=== PATIENT | female | born 1995 | race Asian ===

== ENCOUNTER 2017-06-22 20:55 | Inpatient (IN) | payer OTHER ==
[~2017-06-22] VITALS: Ht 160 cm; Wt 73.4 kg
[2017-06-22 21:24] LABS: BASOPHILS % (AUTO) 0.6 % (0.0-2.0); EOSINOPHILS % (AUTO) 1.5 % (1.0-6.0); HEMATOCRIT 34.9 % (36-46); LYMPHOCYTES # (AUTO) 1.7 K/uL (1.0-4.8); LYMPHOCYTES % (AUTO) 16.7 % (22.0-44.0); MEAN CORPUSCULAR HEMOGLOBIN 19.1 pg (26.0-34.0); MEAN CORPUSCULAR HGB CONC 31.5 G/dL (31.0-37.0); MEAN CORPUSCULAR VOLUME 61 fL (80-100); MONOCYTES % (AUTO) 9.3 % (2.0-9.0); NEUTROPHILS # (AUTO) 7.4 K/uL (1.8-7.7); NEUTROPHILS % (AUTO) 71.9 % (40.0-70.0); PLATELET COUNT (AUTO) 369 K/uL (150-450); RED BLOOD CELL COUNT(AUTO) 5.76 MIL/uL (4.00-5.20)
[2017-06-22 21:27] LABS: ANION GAP 9 mmol/L (8-16); CALCIUM, TOTAL 8.3 mg/dL (8.8-10.5); CARBON DIOXIDE 25 mmol/L (22-29); CHLORIDE 106 mmol/L (98-107); CREATININE 0.67 mg/dL (0.60-1.30); GLOMERULAR FILTR. RATE CALC > 60 mL/min (>60); GLUCOSE,RANDOM 115 mg/dL (70-110); POTASSIUM 4.4 mmol/L (3.5-5.1); SODIUM SERUM 140 mmol/L (136-145); UREA NITROGEN, BLOOD 13 mg/dL (7-18)
[2017-06-22 21:33] LABS: ALANINE AMINOTRANSFERASE 23 U/L (12-78); ALBUMIN 3.6 g/dL (3.4-5.0); ALKALINE PHOSPHATASE 88 U/L (46-116); ASPARTATE AMINOTRANSFERASE 18 U/L (15-37); BILIRUBIN,TOTAL 0.2 mg/dL (0.1-1.0); TOTAL PROTEIN, SERUM 8.1 g/dL (6.4-8.2)
[2017-06-22 21:34] LABS: ACETAMINOPHEN < 2 mcg/mL (10-30)
[2017-06-22 21:44] LABS: SALICYLATE < 2.8 mg/dL (2.8-20.0)
[2017-06-22 22:02] LABS: PLATELET MORPHOLOGY COMMENT NORMAL
[2017-06-23 00:01] LABS: AMPHET/METH SCREEN,URINE NEGATIVE (NEGATIVE); BARBITURATE SCREEN, URINE NEGATIVE (NEGATIVE); BENZODIAZEPINES SCREEN,URINE NEGATIVE (NEGATIVE); CANNABINOID SCREEN,URINE POSITIVE (NEGATIVE); COCAINE SCREEN,URINE NEGATIVE (NEGATIVE); METHADONE SCREEN, URINE NEGATIVE (NEGATIVE); OPIATE SCREEN,URINE NEGATIVE (NEGATIVE); PHENCYCLIDINE SCREEN,URINE NEGATIVE (NEGATIVE)
[2017-06-23] MEDS ORDERED: HALOPERIDOL 5 MG TABLET PO PRN (03:15)
[2017-06-23] MEDS ORDERED: ZOLPIDEM TARTRATE 10 MG TABLET PO PRN (03:15)
[2017-06-23] MEDS ORDERED: LORazepam 2 MG TABLET PO PRN (03:15)
[2017-06-23 06:13] LABS: CHOL/HDL RATIO 2.6 (3.9-5.7); FREE T4 (FREE THYROXINE) 0.79 ng/dL (0.76-1.46); THYROID STIMULATING HORMONE 1.89 uIU/mL (0.36-3.74)
[2017-06-23 10:25] VITALS: BP 123/72
[2017-06-23] MEDS ORDERED: CloNIDine HCL 0.1 MG TABLET PO PRN (13:45)
[2017-06-23] MEDS ORDERED: ACETAMINOPHEN 325 MG TABLET PO PRN (13:45)
[2017-06-23] MEDS ORDERED: ALBUTEROL SULFATE HFA 90 MCG/PUFF 8 GM INHALER IH PRN (13:45)
[2017-06-23] MEDS ORDERED: IBUPROFEN 600 MG TABLET PO PRN (13:45)
[2017-06-23] MEDS ORDERED: BENZOCAINE/MENTHOL LOZENGE MM PRN (13:45)
[2017-06-23] MEDS ORDERED: ONDANSETRON HCL 4 MG TABLET PO PRN (13:45)
[2017-06-23] MEDS ORDERED: BACITRACIN 28.4 GM OINTMENT TP PRN (13:45)
[2017-06-23] MEDS ORDERED: LOPERAMIDE HCL 2 MG CAPSULE PO PRN (13:45)
[2017-06-23] MEDS ORDERED: PETROLATUM,WHITE 71 GM JELLY TP PRN (13:45)
[2017-06-23] MEDS ORDERED: MAG HYDROX/AL HYDROX/SIMETH ES 30 ML SUSPENSION UDCUP PO PRN (13:45)
[2017-06-23] MEDS ORDERED: MAGNESIUM HYDROXIDE SUSPENSION 30 ML UDCUP PO PRN (13:45)
[2017-06-23 16:00] VITALS: BP 123/79
[2017-06-24 00:17] VITALS: BP 115/76
[2017-06-24 08:38] VITALS: BP 121/77
[2017-06-24] MEDS: BusPIRone HCL 5 MG TABLET PO SCH ×2 (09:14→16:40)
[2017-06-24 09:25] LABS: % IRON SATURATION 28.2 % (22-44)
[2017-06-24 10:27] VITALS: BP 116/74
[2017-06-24 16:17] VITALS: BP 126/76
[2017-06-24] MEDS ORDERED: BUSP5TAB20 PO (16:32)
== END 2017-06-24 18:35 | disposition short-term general hospital (02) | DRG 918 ==
LOC: EMS 20:57 → B2X 06-23 08:41
DX: T42.4X2A Poisoning by benzodiazepines, intentional self-harm, initial encounter (principal); E83.51 Hypocalcemia; D50.9 Iron deficiency anemia, unspecified; F10.10 Alcohol abuse, uncomplicated; F12.10 Cannabis abuse, uncomplicated; F32.9 Major depressive disorder, single episode, unspecified; F41.0 Panic disorder [episodic paroxysmal anxiety]; G47.00 Insomnia, unspecified; Y90.4 Blood alcohol level of 80-99 mg/100 ml; Y92.89 Other specified places as the place of occurrence of the external cause
CPT/HCPCS: 82306; 83540; 83550; 84439; 84443; 93005; G0480; G0481